=== PATIENT | female | born 1960 | race African-American/Black ===

== ENCOUNTER 2016-04-02 14:33 | Emergency (ER) | payer OTHER ==
[~2016-04-02] VITALS: Ht 172.7 cm; Wt 78.5 kg
[2016-04-02] MEDS ORDERED: ADALAT CC 60 MG60 MG PO (14:49)
[2016-04-02] MEDS ORDERED: MOBIC7.5 MG PO (18:15)
[2016-04-02] MEDS ORDERED: FLEXERIL10 MG PO (18:26)
[2016-04-02 18:40] VITALS: BP 128/50
== END 2016-04-02 18:41 | disposition home or self-care (01) ==
LOC: EME 14:33
DX: S93.402A Sprain of unspecified ligament of left ankle, initial encounter (principal); M25.562 Pain in left knee; R51 Headache; M54.5 Low back pain; M25.552 Pain in left hip; V43.52XA Car driver injured in collision with other type car in traffic accident, initial encounter; Y92.488 Other paved roadways as the place of occurrence of the external cause; I10 Essential (primary) hypertension
CPT/HCPCS: 73564; 73610; 99281; 99284